=== PATIENT | female | born 1990 | race Caucasian/White ===

== ENCOUNTER 2016-11-27 18:17 | Observation (INO) | payer OTHER ==
[~2016-11-27] VITALS: Ht 162.6 cm; Wt 80.8 kg
[2016-11-27] MEDS ORDERED: MEDROL DOSEPAK4 MG PO (22:14)
[2016-11-27] MEDS ORDERED: PREDNISONE20 MG PO (22:14)
[2016-11-27] MEDS ORDERED: AZITHROMYCIN250 MG PO (22:15)
[2016-11-27] MEDS ORDERED: PROAIR HFA8.5 GM IH (22:15)
[2016-11-27] MEDS ORDERED: ADVAIR 250/501 DISK IH (22:15)
[2016-11-27 22:16] LABS: HEMATOCRIT 40.1 % (36.0-46.0); MCH 28.7 PG (29.0-34.0); MCHC 34.9 G/DL (30.0-36.0); MCV 82.2 FL (83-99); MEAN PLAT.VOLUME 9.6 uM^3 (9.5-12.4); PLATELET COUNT 356 K/uL (156-360); RBC DIS.WIDTH-CV 12.9 % (11.8-14.6); RBC DIS.WIDTH-SD 37.8 % (39-53); RED BLOOD COUNT 4.88 M/uL (3.80-5.20); WHITE BLOOD COUNT 13.1 K/uL (4.1-10.2)
[2016-11-27 22:23] LABS: D-DIMER ELISA 0.23 mg/L FEU (< 0.57)
[2016-11-27 22:27] LABS: CHLORIDE 110 mEq/L (99-109); POTASSIUM 2.9 mEq/L (3.7-5.4); SODIUM 141 mEq/L (136-147)
[2016-11-27 22:29] LABS: GLUCOSE 108 mg/dL (70-99)
[2016-11-27 22:30] LABS: ANION GAP 13 MEQ/L (2-14)
[2016-11-27 22:32] LABS: GFR ESTIMATE (CALCULATED) > 59 mL/min/
[2016-11-27 22:33] LABS: UREA NITROGEN (BUN) 15 mg/dL (9-23)
[2016-11-27 23:36] VITALS: BP 119/64
[2016-11-27 23:39] LABS: BASE EXCESS -0.6 mEq/L (-3 to +3); BICARBONATE 18.7 mEq/L (22-26); CARBOXY HGB 1.6 % (0-5); COMMENTS - BLOOD GASES C+A+; METHEMOGLOBIN 1.7 % (0-1.5); PCO2 19 mm Hg (35-45); PO2 86 mm Hg (80-100); SITE RB
[2016-11-27 23:40] LABS: DEVICE ROOM AIR
[2016-11-27 23:53] LABS: MAGNESIUM 1.6 mg/dL (1.3-2.7)
[2016-11-28 04:06] VITALS: BP 113/56
[2016-11-28 07:01] VITALS: BP 96/58
[2016-11-28 09:01] LABS: ANION GAP 10 MEQ/L (2-14); CHLORIDE 108 MEQ/L (99-109); GFR ESTIMATE (CALCULATED) > 59 mL/min/; GLUCOSE 145 mg/dL (70-99); SAMPLE HEMOLYSIS CHECK 0; SAMPLE ICTERIC CHECK 0; SAMPLE LIPEMIA CHECK 0; SODIUM 140 MEQ/L (136-147); UREA NITROGEN (BUN) 12 mg/dL (9-23)
[2016-11-28 09:03] LABS: POTASSIUM 3.8 MEQ/L (3.7-5.4)
[2016-11-28 11:07] VITALS: BP 107/57
[2016-11-28 16:30] VITALS: BP 117/59
[2016-11-28 19:49] VITALS: BP 103/55
[2016-11-29] VITALS: BP 105/53
[2016-11-29 04:00] VITALS: BP 107/58
[2016-11-29 07:15] LABS: EOSINOPHIL (%) 0 % (0-5); HEMATOCRIT 38.4 % (36.0-46.0); IMMATURE GRANULOCYTE (%) 0.5 % (0.0-0.7); IMMATURE GRANULOCYTE COUNT 0.1 K/uL; LYMPHOCYTE COUNT 1.5 K/uL (1.0-2.8); MCH 27.4 PG (29.0-34.0); MCHC 32.3 G/DL (30.0-36.0); MEAN PLAT.VOLUME 9.7 uM^3 (9.5-12.4); MONOCYTE COUNT 0.9 K/uL (0-0.8); NEUTROPHIL (%) 86.4 % (45-76); NEUTROPHIL COUNT 15.9 K/uL (1.8-6.4); PLATELET COUNT 392 K/uL (156-360); RBC DIS.WIDTH-CV 13.5 % (11.8-14.6); RBC DIS.WIDTH-SD 41.9 % (39-53); RED BLOOD COUNT 4.52 M/uL (3.80-5.20); WHITE BLOOD COUNT 18.5 K/uL (4.1-10.2)
[2016-11-29 07:25] LABS: ALKALINE PHOSPHATASE 49 IU/L (3-129); ANION GAP 8 MEQ/L (2-14); CHLORIDE 106 MEQ/L (99-109); GFR ESTIMATE (CALCULATED) > 59 mL/min/; SAMPLE HEMOLYSIS CHECK 0; SAMPLE ICTERIC CHECK 0; SAMPLE LIPEMIA CHECK 0; SODIUM 137 MEQ/L (136-147); TOTAL BILIRUBIN 0.2 MG/DL (0.0-1.0); UREA NITROGEN (BUN) 11 mg/dL (9-23)
[2016-11-29 07:26] LABS: GLUCOSE 108 mg/dL (70-99); POTASSIUM 4.6 MEQ/L (3.7-5.4)
[2016-11-29 07:35] VITALS: BP 117/59
[2016-11-29 11:05] VITALS: BP 104/55
[2016-11-29] MEDS ORDERED: CEFTIN250 MG PO (12:26)
[2016-11-29] MEDS ORDERED: MONTELUKAST SOD10 MG PO (12:29)
[2016-11-29] MEDS ORDERED: PREDNISONE10 MG PO (12:29)
[2016-11-29] MEDS ORDERED: BENZONATATE100 MG PO (12:29)
[2016-11-29 13:23] LABS: POINT-OF-CARE METER ID UU13113831
== END 2016-11-29 16:30 | disposition home or self-care (01) ==
LOC: EME 18:17 → EDOF 22:08 → 5WEST 22:08 → EDOF 22:08 → 5WEST 23:19
PROVIDERS: Hospitalist; Nurse Practitioner Family; Physician Assistant Medical
DX: J45.31 Mild persistent asthma with (acute) exacerbation (principal); J20.9 Acute bronchitis, unspecified; E87.6 Hypokalemia; D72.829 Elevated white blood cell count, unspecified; Z82.5 Family history of asthma and other chronic lower respiratory diseases
CPT/HCPCS: 36600; 71020; 80048; 80053; 82803; 82948; 83735; 85025; 85027; 85379; 94640; 94640 76; 94799; 99202; 99281; 99285; G0378; J0696; J1100; J2930; J3475; J7050; J7512